=== PATIENT | male | born 1980 | race Caucasian/White ===

== ENCOUNTER 2018-12-21 00:51 | Outpatient (CLI) | payer BC, SELFPAY ==
[2018-12-21 11:33] LABS: ALT 36 U/L (12-78); AST 27 U/L (15-37); Albumin 4.2 g/dL (3.4-5.0); Alkaline Phosphatase 66 U/L (46-116); Anion Gap 8.3 mmol/L (3-11); BUN 18 mg/dL (7-18); Bilirubin, Total 0.4 mg/dL (0.2-1.0); CO2 28.7 mmol/L (21.0-32.0); Calcium 8.9 mg/dL (8.5-10.1); Chloride 102 mmol/L (98-107); Glucose 99 mg/dL (70-100); HDL Cholesterol 49 mg/dL (40-60); LDL CHOLESTEROL 162 mg/dL (<100); Potassium 4.6 mmol/L (3.5-5.1); Sodium 139 mmol/L (136-145); Total Protein 7.6 g/dL (6.4-8.2); Triglyceride 32 mg/dL (30-150)
[2018-12-21 11:49] LABS: Cholesterol 227 mg/dL (50-200)
== END 2018-12-21 01:11 ==
PROVIDERS: PCP Family Medicine; Visit Provider Family Medicine
DX: E78.00 Pure hypercholesterolemia, unspecified (principal)
CPT/HCPCS: 36415; 80053; 80061; 83721

== ENCOUNTER 2019-03-12 19:56 | Emergency (ER) | payer OTHER, SELFPAY ==
[2019-03-12 20:01] VITALS: BP 145/79; PULSE 75; RESP 16; TEMP 36.6; O2SAT 97
--- NOTE | 2019-03-12 20:06 | W.ED.GENAD ---
Discharge Plan Disposition Patient Disposition: HOME Condition: Stable Discharge Details Chief Complaint: Laceration Clinical Impression: Laceration of left middle finger Primary Care Provider: Eliel Dueñas ED Provider: Ilan Kong Discharge Instructions Instructions: Finger Laceration (ED) Additional Instructions: return in 7 days for evaluate if suture are ready to be removed and sooner if signs of infection such as spreading redness or yellow/white discharge return sooner Medical Decision Making 38 yo male comes in with left middle finger laceration. He works [employer] and was moving a rock when he got it stuck between two rocks causing a left middle finger laceration. Has a 1cm anterior laceratino of distal left middle finger over the pad of the finger, and a 1cm abrasion just proximal to this. Has full rom, no severe pain on palpation so doubt entities such as tendon rupture or fx. Will irrigate and suture the laceration Differential Diagnosis laceration, abrasion HPI General Mode of arrival: ambulatory. Date/Time Provider Initiated Documentation: 03/12/19 20:06. Limitations to Documentation: no limitations. Information obtained by: patient. History of Present Illness 38 year old M presents to the emergency department with the chief complaint of left middle finger laceration, described as mild, Quality is described as aching, and is localized to the left and upper extremity. Patient reports no radiation. Patient started experiencing this hour(s) (10) and it has been constant. No relieving factors improve symptom(s), No exacerbating factors reported . Patient notes no other symptoms.. Patient did receive the following treatments prior to arrival, none Related Data Allergies Allergy/AdvReac Type Severity Reaction Status Date / Time No Known Allergies Allergy Unverified 12/06/18 09:09 General Stated Complaint: Laceration DOMINGA: 3 Review of Systems Review of Systems All systems reviewed & are unremarkable except as noted in HPI and below Constitutional Denies weakness Cardiovascular Denies chest pain and Denies dyspnea Respiratory Denies dyspnea Gastrointestinal Denies abdominal pain, Denies nausea and Denies vomiting Integumentary/Breasts Denies rash Neurologic Denies weakness Endocrine Denies heat intolerance PFSH Family History Mother Numerous moles Substance abuse Depression Skin cancer Maternal Grandfather Substance abuse Depression Stroke Paternal Grandfather Myocardial infarction Maternal Grandmother Neoplasm Paternal Grandmother Neoplasm Maternal Cousin Neoplasm Father Hyperlipidemia Social History Smoking/Tobacco Use Status: Never Alcohol Intake: current Alcohol Intake frequency: a few times a month Drug use: Never Substance use type: does not use Household members: spouse Housing: house Pets and animals: Yes Pets and animals: dog(s) Sexually active: Yes Do you think of yourself as: straight/heterosexual Current gender identity: male What is your relationship status?: How often do you talk on the phone with friends or family?: decline to answer How often do you get together with friends or relatives?: decline to answer How often do you attend jain or protestant services?: decline to answer Do you belong to any clubs or organized social groups?: decline to answer Panel score (0-1 are the most socially isolated patients): 1 What type of physical activity do you participate in: walking, bicycling and other Duration: 15-30 minutes/day Frequency: 3-4 times per week Samantha/Anabaptist: None Special samantha needs: No Do you feel safe at home: Yes Do you feel safe in your relationship?: Yes Exam Const General: no acute distress Orientation: alert HENMT Head: normal to inspection Ears: external ears normal General nose exam: external nose normal Mouth: moist mucous membranes Eyes General: appearance normal, both eyes and all related structures Neck Neck: normal visual inspection Resp Effort & Inspection: normal respiratory effort and able to speak in complete sentences Cardio Rate: regular rate Skin General skin exam: no rashes or lesions noted Neuro General: alert and oriented x3 Extrem General: full ROM and normal capillary refill Psych Mental Status: mental status grossly normal Course Vital Signs Temperature 36.6 C 03/12/19 20:01 Pulse 75 03/12/19 20:01 Respiratory Rate 16 03/12/19 20:01 Blood Pressure 145/79 H 03/12/19 20:01 Pulse Oximetry 97 03/12/19 20:01 Temperature 36.6 C 03/12/19 20:01 Temperature Source Tympanic 03/12/19 20:01 Pulse 75 03/12/19 20:01 Respiratory Rate 16 03/12/19 20:01 Blood Pressure 145/79 H 03/12/19 20:01 Blood Pressure Position Sitting 03/12/19 20:01 Pulse Oximetry 97 03/12/19 20:01 Oxygen Delivery Method Room Air 03/12/19 20:01 Oxygen Flow Rate 0 03/12/19 20:01 Pain Level 2 03/12/19 20:01 Procedures Laceration Laceration 1: Site: hand Side (If applicable): left Size (cm): 1 Description: linear Depth: simple, single layer Local Anesthetic: Lidocaine 1% and with Epi Amount of anesthesia used (mL): 3 Pre-repair: wound explored and irrigated extensively Skin layer closed with: vicryl Size (cm): 5-0 Number of sutures: 3
--- NOTE | 2019-03-12 20:16 | ED.GENADUL_ITS ---
Discharge Plan Disposition Patient Disposition: HOME Condition: Stable Discharge Details Chief Complaint: Laceration Clinical Impression: Laceration of left middle finger Primary Care Provider: Eliel Dueñas ED Provider: Ilan Kong Discharge Instructions Instructions: Finger Laceration (ED) Additional Instructions: return in 7 days for evaluate if suture are ready to be removed and sooner if signs of infection such as spreading redness or yellow/white discharge return sooner Medical Decision Making 38 yo male comes in with left middle finger laceration. He works [employer] and was moving a rock when he got it stuck between two rocks causing a left middle finger laceration. Has a 1cm anterior laceratino of distal left middle finger over the pad of the finger, and a 1cm abrasion just proximal to this. Has full rom, no severe pain on palpation so doubt entities such as tendon rupture or fx. Will irrigate and suture the laceration Differential Diagnosis laceration, abrasion HPI General Mode of arrival: ambulatory . Date/Time Provider Initiated Documentation: 03/12/19 20:06 . Limitations to Documentation: no limitations . Information obtained by: patient . History of Present Illness 38 year old M presents to the emergency department with the chief complaint of left middle finger laceration, described as mild, Quality is described as aching, and is localized to the left and upper extremity. Patient reports no radiation. Patient started experiencing this hour(s) (10) and it has been constant. No relieving factors improve symptom(s), No exacerbating factors reported . Patient notes no other symptoms.. Patient did receive the following treatments prior to arrival, none Related Data Allergies Allergy/AdvReac Type Severity Reaction Status Date / Time No Known Allergies Allergy Unverified 12/06/18 09:09 General Stated Complaint: Laceration DOMINGA: 3 Review of Systems Review of Systems All systems reviewed & are unremarkable except as noted in HPI and below Constitutional Denies weakness Cardiovascular Denies chest pain and Denies dyspnea Respiratory Denies dyspnea Gastrointestinal Denies abdominal pain, Denies nausea and Denies vomiting Integumentary/Breasts Denies rash Neurologic Denies weakness Endocrine Denies heat intolerance PFSH Family History Mother Numerous moles Substance abuse Depression Skin cancer Maternal Grandfather Substance abuse Depression Stroke Paternal Grandfather Myocardial infarction Maternal Grandmother Neoplasm Paternal Grandmother Neoplasm Maternal Cousin Neoplasm Father Hyperlipidemia Social History Smoking/Tobacco Use Status: Never Alcohol Intake: current Alcohol Intake frequency: a few times a month Drug use: Never Substance use type: does not use Household members: spouse Housing: house Pets and animals: Yes Pets and animals: dog(s) Sexually active: Yes Do you think of yourself as: straight/heterosexual Current gender identity: male What is your relationship status?: How often do you talk on the phone with friends or family?: decline to answer How often do you get together with friends or relatives?: decline to answer How often do you attend restorationism or presybeterian services?: decline to answer Do you belong to any clubs or organized social groups?: decline to answer Panel score (0-1 are the most socially isolated patients): 1 What type of physical activity do you participate in: walking, bicycling and other Duration: 15-30 minutes/day Frequency: 3-4 times per week Samantha/Mandaen: None Special samantha needs: No Do you feel safe at home: Yes Do you feel safe in your relationship?: Yes Exam Const General: no acute distress Orientation: alert HENMT Head: normal to inspection Ears: external ears normal General nose exam: external nose normal Mouth: moist mucous membranes Eyes General: appearance normal, both eyes and all related structures Neck Neck: normal visual inspection Resp Effort & Inspection: normal respiratory effort and able to speak in complete sentences Cardio Rate: regular rate Skin General skin exam: no rashes or lesions noted Neuro General: alert and oriented x3 Extrem General: full ROM and normal capillary refill Psych Mental Status: mental status grossly normal Course Vital Signs Temperature 36.6 C 03/12/19 20:01 Pulse 75 03/12/19 20:01 Respiratory Rate 16 03/12/19 20:01 Blood Pressure 145/79 H 03/12/19 20:01 Pulse Oximetry 97 03/12/19 20:01 Temperature 36.6 C 03/12/19 20:01 Temperature Source Tympanic 03/12/19 20:01 Pulse 75 03/12/19 20:01 Respiratory Rate 16 03/12/19 20:01 Blood Pressure 145/79 H 03/12/19 20:01 Blood Pressure Position Sitting 03/12/19 20:01 Pulse Oximetry 97 03/12/19 20:01 Oxygen Delivery Method Room Air 03/12/19 20:01 Oxygen Flow Rate 0 03/12/19 20:01 Pain Level 2 03/12/19 20:01 Procedures Laceration Laceration 1: Site: hand Side (If applicable): left Size (cm): 1 Description: linear Depth: simple, single layer Local Anesthetic: Lidocaine 1% and with Epi Amount of anesthesia used (mL): 3 Pre-repair: wound explored and irrigated extensively Skin layer closed with: vicryl Size (cm): 5-0 Number of sutures: 3
== END 2019-03-12 20:45 | disposition home or self-care (01) ==
PROVIDERS: Emergency Provider Emergency Medicine; PCP Family Medicine
DX: S61.213A Laceration without foreign body of left middle finger without damage to nail, initial encounter (principal); W23.1XXA Caught, crushed, jammed, or pinched between stationary objects, initial encounter
CPT/HCPCS: 12001

== ENCOUNTER 2020-12-17 03:58 | Outpatient (CLI) | payer BC, SELFPAY ==
[2020-12-17 12:40] LABS: Calculated LDL 184 mg/dL (<100); Cholesterol 246 mg/dL (<200); HDL Cholesterol 50 mg/dL (40-60); Triglyceride 62 mg/dL (<150)
== END 2020-12-17 03:59 | disposition home or self-care (01) ==
LOC: LOS 03:58
PROVIDERS: PCP Family Medicine; Visit Provider Nurse Practitioner Family
DX: E78.00 Pure hypercholesterolemia, unspecified (principal)
CPT/HCPCS: 36415; 80061

== ENCOUNTER 2021-06-12 15:12 | Emergency (ER) | payer OTHER, SELFPAY ==
[2021-06-12 15:15] VITALS: BP 132/73; PULSE 68; RESP 16; TEMP 36.4; O2SAT 98
[2021-06-12] MEDS: Lidocaine 1% Multi-Dose 50 ML VIAL IJ (15:45)
--- NOTE | 2021-06-12 15:54 | ED.GENADUL_ITS ---
Discharge Plan Disposition Patient Disposition: HOME Condition: Good Discharge Details Clinical Impression: Laceration of finger Primary Care Provider: Dontae Hess ED Provider: Abi Ortega Home Meds and New Rx's Prescriptions: No Action No Known Home Meds RF: 0 Discharge Instructions Instructions: Finger Laceration (ED) Additional Instructions: Suture removal in 11 to 12 days Use splint for 1 week Do not submerge in water until the wound has healed completely and your sutures have been removed Try to keep as dry as possible for the next 24 hours Return with spreading redness, fever, worsening pain Motrin and Tylenol as needed for pain, 600 mg of ibuprofen, Tylenol 650mg Stand Alone Forms: Work Release Discharge Data Discharge Date/Time-TO BE ENTERED AT DEPARTURE: 06/12/21 16:02 HPI General Date/Time Provider Initiated Documentation: 06/12/21 15:19 . Related Data Home Medications Medication Instructions Recorded Confirmed Unknown [No Known Home Meds] 12/10/19 06/12/21 Allergies Allergy/AdvReac Type Severity Reaction Status Date / Time No Known Allergies Allergy Verified 06/12/21 15:20 General Stated Complaint: Laceration DOMINGA: 4 PFSH Family History (Updated 12/19/20 @ 15:26 by Kaykay Hollingsworth) Mother Numerous moles SUSPICIOUS Substance abuse Depression Skin cancer Maternal Grandfather , 80s Substance abuse Depression Stroke Cancer Paternal Grandfather , 70s Myocardial infarction Alcohol abuse Depression Maternal Grandmother , 90s Skin cancer Paternal Grandmother , 80s Breast cancer Maternal Cousin Skin cancer Father Hyperlipidemia Son No problems noted. Social History (Updated 12/19/20 @ 15:26 by Kaykay Hollingsworth) Smoking/Tobacco Use Status: Never Smoking risk assessment performed?: Yes Alcohol Intake: current Alcohol Intake frequency: a few times a week Alcohol type: beer Drug use: Never Substance use type: does not use Caregiver/Support person: No Household members: spouse and children Housing: house Communication Needs: None Do you need help understanding health information?: Rarely Pets and animals: Yes Pets and animals: dog(s) Sexually active: Yes Do you think of yourself as: straight/heterosexual Current gender identity: male What is your relationship status?: How often do you talk on the phone with friends or family?: twice per week How often do you get together with friends or relatives?: once per week How often do you attend scientology or mormonism services?: 1-3 times per year Do you belong to any clubs or organized social groups?: no Panel score (0-1 are the most socially isolated patients): 2 What type of physical activity do you participate in: walking, bicycling and other Details: skiing Duration: decline to answer Frequency: 1-2 times per week Samantha/Adventist: None Special samantha needs: No Seatbelt use: always Helmet use: Yes Helmet use: always 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 Do you feel safe at home: Yes Do you feel safe in your relationship?: Yes Course Vital Signs Vital signs: Vital Signs Temperature 36.4 C L 06/12/21 15:15 Pulse 68 06/12/21 15:15 Respiratory Rate 16 06/12/21 15:15 Blood Pressure 132/73 06/12/21 15:15 Pulse Oximetry 98 06/12/21 15:15 Temperature 36.4 C L 06/12/21 15:15 Temperature Source Skin 06/12/21 15:15 Pulse 68 06/12/21 15:15 Respiratory Rate 16 06/12/21 15:15 Respiratory Effort 06/12/21 15:21 Blood Pressure 132/73 06/12/21 15:15 Blood Pressure Position Sitting 06/12/21 15:15 Pulse Oximetry 98 06/12/21 15:15 Oxygen Delivery Method Room Air 06/12/21 15:15 Oxygen Flow Rate 0 06/12/21 15:15 Pain Level 1 06/12/21 15:15
--- NOTE | 2021-07-06 08:09 | ED.GENADUL_ITS ---
Discharge Plan Disposition Patient Disposition: HOME Condition: Good Discharge Details Clinical Impression: Laceration of finger Primary Care Provider: Dontae Hess ED Provider: Abi Ortega Home Meds and New Rx's Prescriptions: No Action No Known Home Meds RF: 0 Discharge Instructions Instructions: Finger Laceration (ED) Additional Instructions: Suture removal in 11 to 12 days Use splint for 1 week Do not submerge in water until the wound has healed completely and your sutures have been removed Try to keep as dry as possible for the next 24 hours Return with spreading redness, fever, worsening pain Motrin and Tylenol as needed for pain, 600 mg of ibuprofen, Tylenol 650mg Stand Alone Forms: Work Release Discharge Data Discharge Date/Time-TO BE ENTERED AT DEPARTURE: 06/12/21 16:02 Medical Decision Making Patient tolerated suture placement without incident Return cautions discussed and patient understanding Discharged home [facility] General Mode of arrival: ambulatory . Date/Time Provider Initiated Documentation: 06/12/21 15:19 . Limitations to Documentation: no limitations . Information obtained by: patient . HPI Narrative: This 41-year-old gentleman presents with laceration to right ring finger on time) at work. He denies any additional injuries. He denies strength or sensation change. His tetanus is reportedly up-to-date Related Data Home Medications Medication Instructions Recorded Confirmed Unknown [No Known Home Meds] 12/10/19 06/12/21 Allergies Allergy/AdvReac Type Severity Reaction Status Date / Time No Known Allergies Allergy Verified 06/23/21 14:40 General Stated Complaint: Laceration DOMINGA: 4 Review of Systems Narrative: Review of systems obtained, negative aside from indication in HPI PFS Family History (Updated 12/19/20 @ 15:26 by Kaykay Hollingsworth) Mother Numerous moles SUSPICIOUS Substance abuse Depression Skin cancer Maternal Grandfather , 80s Substance abuse Depression Stroke Cancer Paternal Grandfather , 70s Myocardial infarction Alcohol abuse Depression Maternal Grandmother , 90s Skin cancer Paternal Grandmother , 80s Breast cancer Maternal Cousin Skin cancer Father Hyperlipidemia Son No problems noted. Social History (Updated 12/19/20 @ 15:26 by Kaykay Hollingsworth) Smoking/Tobacco Use Status: Never Smoking risk assessment performed?: Yes Alcohol Intake: current Alcohol Intake frequency: a few times a week Alcohol type: beer Drug use: Never Substance use type: does not use Caregiver/Support person: No Household members: spouse and children Housing: house Communication Needs: None Do you need help understanding health information?: Rarely Pets and animals: Yes Pets and animals: dog(s) Sexually active: Yes Do you think of yourself as: straight/heterosexual Current gender identity: male What is your relationship status?: How often do you talk on the phone with friends or family?: twice per week How often do you get together with friends or relatives?: once per week How often do you attend cheondoism or jew services?: 1-3 times per year Do you belong to any clubs or organized social groups?: no Panel score (0-1 are the most socially isolated patients): 2 What type of physical activity do you participate in: walking, bicycling and o ther Details: skiing Duration: decline to answer Frequency: 1-2 times per week Samantha/Congregational: None Special samantha needs: No Seatbelt use: always Helmet use: Yes Helmet use: always Drive intox or ride w/intox 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 Do you feel safe at home: Yes Do you feel safe in your relationship?: Yes Exam Extrem Other: Right ring finger with approximately 1 inch laceration noted, strength and sensation intact distally, capillary refill intact distally Course Vital Signs Vital signs: Vital Signs Temperature 36.4 C L 06/12/21 15:15 Pulse 68 06/12/21 15:15 Respiratory Rate 16 06/12/21 15:15 Blood Pressure 132/73 06/12/21 15:15 Pulse Oximetry 98 06/12/21 15:15 Temperature 36.4 C L 06/12/21 15:15 Temperature Source Skin 06/12/21 15:15 Pulse 68 06/12/21 15:15 Respiratory Rate 16 06/12/21 15:15 Respiratory Effort 06/12/21 15:21 Blood Pressure 132/73 06/12/21 15:15 Blood Pressure Position Sitting 06/12/21 15:15 Pulse Oximetry 98 06/12/21 15:15 Oxygen Delivery Method Room Air 06/12/21 15:15 Oxygen Flow Rate 0 06/12/21 15:15 Pain Level 1 06/12/21 15:15 Procedures Laceration Laceration 1: Site: upper extremity (Right ring finger with 2 cm laceration noted) Description: linear Local Anesthetic: Lidocaine 1% Amount of anesthesia used (mL): 2 Pre-repair: wound explored, irrigated extensively, deep structures intact and wound margins revised Skin layer closed with: nylon Size (cm): 5-0 Number of sutures: 3 Technique: simple, interrupted
== END 2021-06-12 16:02 | disposition home or self-care (01) ==
PROVIDERS: Emergency Provider Physician Assistant; PCP Nurse Practitioner Family
DX: S61.214A Laceration without foreign body of right ring finger without damage to nail, initial encounter (principal); X58.XXXA Exposure to other specified factors, initial encounter
CPT/HCPCS: 12001; 29130

== ENCOUNTER 2024-03-20 03:17 | Outpatient (CLI) | payer OTHER, SELFPAY ==
[2024-03-20 08:34] LABS: Hemoglobin A1C 5.9 % (<5.7)
[2024-03-20 08:35] LABS: Calculated LDL 210 mg/dL (<100); Cholesterol 280 mg/dL (<200); HDL Cholesterol 46 mg/dL (40-60); Triglyceride 123 mg/dL (<150)
== END 2024-03-20 03:18 | disposition home or self-care (01) ==
LOC: LBO 03:18
PROVIDERS: PCP Nurse Practitioner Family; Visit Provider Nurse Practitioner Family
DX: Z00.00 Encounter for general adult medical examination without abnormal findings (principal)
CPT/HCPCS: 36415; 80061; 83036

== ENCOUNTER 2025-02-05 03:52 | Outpatient (CLI) | payer OTHER, SELFPAY ==
[2025-02-05 08:51] LABS: Hemoglobin A1C 5.7 % (<5.7)
[2025-02-05 21:14] LABS: Calculated LDL 155 mg/dL (<100); Cholesterol 213 mg/dL (<200); HDL Cholesterol 47 mg/dL (>or=40); Triglyceride 55 mg/dL (<150)
== END 2025-02-05 03:53 | disposition home or self-care (01) ==
PROVIDERS: PCP Nurse Practitioner Family; Visit Provider Nurse Practitioner Family
DX: Z13.1 Encounter for screening for diabetes mellitus (principal); Z13.220 Encounter for screening for lipoid disorders
CPT/HCPCS: 36415; 80061; 83036